=== PATIENT | male | born 1975 | race Caucasian/White ===

== ENCOUNTER 2021-10-15 15:26 | Inpatient (IN) | payer OTHER ==
[~2021-10-15] VITALS: Ht 170.2 cm; Wt 109.1 kg
[2021-10-15] MEDS ORDERED: ACETAMINOPHEN 325 MG TABLET PO PRN (17:15)
[2021-10-15 17:55] LABS: BASOPHILS % (AUTO) 0.4 % (0.0-2.0); EOSINOPHILS % (AUTO) 0.1 % (1.0-6.0); HEMATOCRIT 49.4 % (41-53); HEMOGLOBIN 16.8 g/dL (13.5-17.5); LYMPHOCYTES # (AUTO) 1.4 K/uL (1.0-4.8); LYMPHOCYTES % (AUTO) 21.5 % (22.0-44.0); MEAN CORPUSCULAR VOLUME 85 fL (80-100); MONOCYTES # (AUTO) 0.7 K/uL (0.1-1.0); MONOCYTES % (AUTO) 9.9 % (2.0-9.0); NEUTROPHILS # (AUTO) 4.5 K/uL (1.8-7.7); NEUTROPHILS % (AUTO) 68.1 % (40.0-70.0); PLATELET COUNT (AUTO) 259 K/uL (150-450); RED CELL DISTRIBUTION WIDTH 14.6 % (11.5-14.5)
[2021-10-15 17:59] LABS: ANION GAP 9 mmol/L (8-16); CALCIUM, TOTAL 9.4 mg/dL (8.8-10.5); CARBON DIOXIDE 27 mmol/L (22-29); CHLORIDE 100 mmol/L (98-107); CREATININE 1.13 mg/dL (0.60-1.30); GLOMERULAR FILTR. RATE CALC > 60 mL/min (>60); GLUCOSE,RANDOM 110 mg/dL (70-110); POTASSIUM 3.9 mmol/L (3.5-5.1); SODIUM SERUM 136 mmol/L (136-145); UREA NITROGEN, BLOOD 16 mg/dL (7-18)
[2021-10-15 18:10] LABS: LACTIC ACID 1.6 mmol/L (0.4-2.0)
[2021-10-15 18:12] LABS: D-DIMER 0.42 mg/L FEU (0.00-0.50); PROTHROMBIN TIME 10.9 SEC (9.4-11.6)
[2021-10-15 18:20] LABS: B-TYPE NATRIURETIC PEPTIDE < 5 pg/mL (0-100)
[2021-10-15 18:22] LABS: ALANINE AMINOTRANSFERASE 82 U/L (12-78); ALBUMIN 3.7 g/dL (3.4-5.0); ALKALINE PHOSPHATASE 89 U/L (46-116); ASPARTATE AMINOTRANSFERASE 49 U/L (15-37); BILIRUBIN,TOTAL 0.6 mg/dL (0.1-1.0); FERRITIN 174 ng/mL (26-388); LACTATE DEHYDROGENASE 188 U/L (85-227); LIPASE 229 U/L (73-393); TOTAL PROTEIN, SERUM 8.1 g/dL (6.4-8.2)
[2021-10-15] MEDS ORDERED: ESCI10 PO (21:29)
[2021-10-15] MEDS ORDERED: GABA-529 PO (21:29)
[2021-10-15] MEDS ORDERED: ACYC-138 PO (21:29)
[2021-10-15] MEDS ORDERED: TERB250T90 PO (21:29)
[2021-10-15] MEDS ORDERED: ONDANSETRON HCL 4 MG/2 ML VIAL IVP PRN (22:45)
[2021-10-15 22:58] LABS: COVID AG,FIA SOURCE NASOPHARYNGEAL
[2021-10-15] MEDS ORDERED: LEVOFLOXACIN 500 MG TABLET PO SCH (23:30)
[2021-10-16] MEDS ORDERED: ONDANSETRON HCL 4 MG TABLET PO ONE (01:00)
[2021-10-16 08:54] VITALS: BP 119/71
[2021-10-16] MEDS: HEPARIN SODIUM,PORCINE 5,000 UNITS/ML VIAL SQ SCH ×4 (09:50→23:44)
[2021-10-16] MEDS: MULTIVITAMINS WITH MINERALS, THERAPEUTIC TABLET PO SCH (09:50)
[2021-10-16] MEDS: BENZONATATE 100 MG CAPSULE PO PRN ×3 (10:05→23:45)
[2021-10-16 10:44] LABS: APPEARANCE,URINE CLEAR (CLEAR); BACTERIA,URINE None Seen /HPF (None Seen); BILIRUBIN,URINE NEGATIVE (NEGATIVE); GLUCOSE, URINE (UA) NEGATIVE (NEGATIVE); KETONES,URINE NEGATIVE (NEGATIVE); LEUKOCYTE ESTERASE ,URINE NEGATIVE (NEGATIVE); NITRATE,URINE NEGATIVE (NEGATIVE); OCCULT BLOOD,URINE NEGATIVE (NEGATIVE); PH,URINE 6.5 (5.0-8.0); PROTEIN,URINE NEGATIVE (NEGATIVE); RBC,URINE None Seen /HPF (0-2); UROBILINOGEN,URINE 0.2 mg/dL (<=1.0); WBC,URINE None Seen /HPF (0-5)
[2021-10-16] MEDS: ACETAMINOPHEN 325 MG TABLET PO PRN ×2 (15:02→21:11)
[2021-10-16 15:15] VITALS: BP 117/83
[2021-10-16] MEDS ORDERED: INFLUENZA VIRUS VACCINE QVS 2021-22 (6MO+)/PF 60 MCG/0.5 ML SYRINGE IM. ONE (18:15)
[2021-10-16 20:40] VITALS: BP 123/65
[2021-10-16 23:22] VITALS: BP 116/70
[2021-10-17] MEDS: ACETAMINOPHEN 325 MG TABLET PO PRN ×4 (03:35→21:15)
[2021-10-17 05:50] VITALS: BP 123/93
[2021-10-17 07:34] VITALS: BP 120/82
[2021-10-17] MEDS: HEPARIN SODIUM,PORCINE 5,000 UNITS/ML VIAL SQ SCH ×2 (08:02→16:01)
[2021-10-17] MEDS: MULTIVITAMINS WITH MINERALS, THERAPEUTIC TABLET PO SCH (08:02)
[2021-10-17] MEDS: BENZONATATE 100 MG CAPSULE PO PRN ×2 (08:10→16:10)
[2021-10-17 15:31] VITALS: BP 122/87
[2021-10-17 19:25] VITALS: BP 120/62
[2021-10-17] MEDS: PROMETH/PHENYLEPHRINE/CODEINE 5 ML ORAL.SYG PO PRN (20:25)
[2021-10-17] MEDS: MELATONIN 3 MG TABLET PO PRN (21:12)
[2021-10-18] MEDS: HEPARIN SODIUM,PORCINE 5,000 UNITS/ML VIAL SQ SCH ×4 (00:10→23:36)
[2021-10-18] MEDS: ACETAMINOPHEN 325 MG TABLET PO PRN ×5 (01:31→21:24)
[2021-10-18] MEDS: PROMETH/PHENYLEPHRINE/CODEINE 5 ML ORAL.SYG PO PRN ×4 (05:15→23:36)
[2021-10-18] MEDS: PANTOPRAZOLE SODIUM 40 MG DR TABLET PO SCH (08:18)
[2021-10-18] MEDS: BENZONATATE 100 MG CAPSULE PO PRN ×3 (08:18→21:24)
[2021-10-18] MEDS: MULTIVITAMINS WITH MINERALS, THERAPEUTIC TABLET PO SCH (08:18)
[2021-10-18 08:41] VITALS: BP 111/75
[2021-10-18 16:33] VITALS: BP 102/54
[2021-10-18 17:06] LABS: S PNEUMO SOURCE Urine; STREP PNEUMONIAE AG URINE Negative (Negative)
[2021-10-18 20:07] VITALS: BP 110/74
[2021-10-18] MEDS: MELATONIN 3 MG TABLET PO PRN (21:26)
[2021-10-19] MEDS: BENZONATATE 100 MG CAPSULE PO PRN ×3 (03:59→23:20)
[2021-10-19] MEDS: ACETAMINOPHEN 325 MG TABLET PO PRN ×5 (04:06→20:24)
[2021-10-19 04:23] VITALS: BP 106/67
[2021-10-19 06:59] LABS: BASOPHILS % (AUTO) 0.8 % (0.0-2.0); EOSINOPHILS % (AUTO) 0.8 % (1.0-6.0); HEMATOCRIT 45.4 % (41-53); HEMOGLOBIN 15.4 g/dL (13.5-17.5); LYMPHOCYTES # (AUTO) 1.6 K/uL (1.0-4.8); LYMPHOCYTES % (AUTO) 29.9 % (22.0-44.0); MEAN CORPUSCULAR VOLUME 85 fL (80-100); MONOCYTES # (AUTO) 0.5 K/uL (0.1-1.0); NEUTROPHILS # (AUTO) 3.1 K/uL (1.8-7.7); NEUTROPHILS % (AUTO) 58.5 % (40.0-70.0); PLATELET COUNT (AUTO) 298 K/uL (150-450); RED BLOOD CELL COUNT(AUTO) 5.32 MIL/uL (4.50-5.90); RED CELL DISTRIBUTION WIDTH 14.7 % (11.5-14.5)
[2021-10-19 07:22] LABS: ALANINE AMINOTRANSFERASE 67 U/L (12-78); ALBUMIN 2.8 g/dL (3.4-5.0); ALKALINE PHOSPHATASE 72 U/L (46-116); ANION GAP 2 mmol/L (8-16); ASPARTATE AMINOTRANSFERASE 50 U/L (15-37); BILIRUBIN,TOTAL 0.6 mg/dL (0.1-1.0); C-REACTIVE PROTEIN QUANT 1.81 mg/dL (0.00-0.30); CALCIUM, TOTAL 8.7 mg/dL (8.8-10.5); CARBON DIOXIDE 30 mmol/L (22-29); CHLORIDE 103 mmol/L (98-107); GLOMERULAR FILTR. RATE CALC > 60 mL/min (>60); GLUCOSE,RANDOM 95 mg/dL (70-110); POTASSIUM 4.3 mmol/L (3.5-5.1); SODIUM SERUM 135 mmol/L (136-145); UREA NITROGEN, BLOOD 10 mg/dL (7-18)
[2021-10-19] MEDS: HEPARIN SODIUM,PORCINE 5,000 UNITS/ML VIAL SQ SCH ×3 (08:07→23:20)
[2021-10-19] MEDS: MULTIVITAMINS WITH MINERALS, THERAPEUTIC TABLET PO SCH (08:07)
[2021-10-19] MEDS: PANTOPRAZOLE SODIUM 40 MG DR TABLET PO SCH (08:07)
[2021-10-19] MEDS: PROMETH/PHENYLEPHRINE/CODEINE 5 ML ORAL.SYG PO PRN ×3 (08:07→20:24)
[2021-10-19 08:17] VITALS: BP 108/74
[2021-10-19 20:11] VITALS: BP 117/76
[2021-10-19] MEDS: MELATONIN 3 MG TABLET PO PRN (20:24)
[2021-10-20 04:53] VITALS: BP 105/63
[2021-10-20] MEDS: PROMETH/PHENYLEPHRINE/CODEINE 5 ML ORAL.SYG PO PRN ×3 (06:31→21:01)
[2021-10-20] MEDS: ACETAMINOPHEN 325 MG TABLET PO PRN ×3 (06:34→21:01)
[2021-10-20 09:03] VITALS: BP 110/72
[2021-10-20] MEDS: MULTIVITAMINS WITH MINERALS, THERAPEUTIC TABLET PO SCH (09:28)
[2021-10-20] MEDS: HEPARIN SODIUM,PORCINE 5,000 UNITS/ML VIAL SQ SCH ×3 (09:28→23:11)
[2021-10-20] MEDS: PANTOPRAZOLE SODIUM 40 MG DR TABLET PO SCH (09:29)
[2021-10-20] MEDS: BENZONATATE 100 MG CAPSULE PO PRN ×2 (12:41→23:49)
[2021-10-20 15:44] VITALS: BP 106/72
[2021-10-20 20:18] VITALS: BP 122/75
[2021-10-20] MEDS: MELATONIN 3 MG TABLET PO PRN (23:49)
[2021-10-21 05:48] VITALS: BP 100/69
[2021-10-21] MEDS: ACETAMINOPHEN 325 MG TABLET PO PRN ×3 (05:59→23:52)
[2021-10-21] MEDS: BENZONATATE 100 MG CAPSULE PO PRN ×2 (05:59→23:51)
[2021-10-21] MEDS: PANTOPRAZOLE SODIUM 40 MG DR TABLET PO SCH (08:32)
[2021-10-21] MEDS: HEPARIN SODIUM,PORCINE 5,000 UNITS/ML VIAL SQ SCH ×3 (08:32→23:54)
[2021-10-21] MEDS: MULTIVITAMINS WITH MINERALS, THERAPEUTIC TABLET PO SCH (08:32)
[2021-10-21] MEDS ORDERED: DEXAMETHASONE SOD PHOS 4 MG/ML VIAL IVP ONE (10:45)
[2021-10-21] MEDS: PROMETH/PHENYLEPHRINE/CODEINE 5 ML ORAL.SYG PO PRN ×2 (11:00→19:04)
[2021-10-21] MEDS ORDERED: SODIUM CHLORIDE 0.9% 500 ML IV ONE (11:01)
[2021-10-21 12:42] LABS: BASOPHILS % (AUTO) 2.1 % (0.0-2.0); EOSINOPHILS % (AUTO) 2.2 % (1.0-6.0); HEMATOCRIT 45.8 % (41-53); HEMOGLOBIN 15.7 g/dL (13.5-17.5); LYMPHOCYTES # (AUTO) 1.7 K/uL (1.0-4.8); LYMPHOCYTES % (AUTO) 31.8 % (22.0-44.0); MEAN CORPUSCULAR HEMOGLOBIN 29.4 pg (26.0-34.0); MEAN CORPUSCULAR HGB CONC 34.4 G/dL (31.0-37.0); MEAN CORPUSCULAR VOLUME 86 fL (80-100); MONOCYTES # (AUTO) 0.9 K/uL (0.1-1.0); MONOCYTES % (AUTO) 17.3 % (2.0-9.0); NEUTROPHILS # (AUTO) 2.5 K/uL (1.8-7.7); NEUTROPHILS % (AUTO) 46.6 % (40.0-70.0); PLATELET COUNT (AUTO) 387 K/uL (150-450); RED BLOOD CELL COUNT(AUTO) 5.36 MIL/uL (4.50-5.90); RED CELL DISTRIBUTION WIDTH 14.4 % (11.5-14.5)
[2021-10-21] MEDS ORDERED: REMDESIVIR 200 MG in SODIUM CHLORIDE 0.9% 250 ML IV ONE (13:15)
[2021-10-21 13:29] LABS: ANION GAP 3 mmol/L (8-16); CARBON DIOXIDE 29 mmol/L (22-29); CHLORIDE 102 mmol/L (98-107); CREATININE 0.93 mg/dL (0.60-1.30); GLUCOSE,RANDOM 98 mg/dL (70-110); POTASSIUM 4.3 mmol/L (3.5-5.1); SODIUM SERUM 134 mmol/L (136-145); UREA NITROGEN, BLOOD 13 mg/dL (7-18)
[2021-10-21 13:30] LABS: ALANINE AMINOTRANSFERASE 62 U/L (12-78); ALBUMIN 2.9 g/dL (3.4-5.0); ALKALINE PHOSPHATASE 80 U/L (46-116); ASPARTATE AMINOTRANSFERASE 32 U/L (15-37); BILIRUBIN,TOTAL 0.5 mg/dL (0.1-1.0); C-REACTIVE PROTEIN QUANT 2.19 mg/dL (0.00-0.30); FERRITIN 293 ng/mL (26-388); GLOMERULAR FILTR. RATE CALC > 60 mL/min (>60); LACTATE DEHYDROGENASE 227 U/L (85-227); TOTAL PROTEIN, SERUM 7.5 g/dL (6.4-8.2)
[2021-10-21 19:35] VITALS: BP 108/78
[2021-10-21] MEDS: MELATONIN 3 MG TABLET PO PRN (20:42)
[2021-10-22] MEDS: PROMETH/PHENYLEPHRINE/CODEINE 5 ML ORAL.SYG PO PRN ×3 (04:06→20:49)
[2021-10-22] MEDS: ACETAMINOPHEN 325 MG TABLET PO PRN ×2 (04:10→15:08)
[2021-10-22 04:15] VITALS: BP 116/78
[2021-10-22 06:51] LABS: BASOPHILS % (AUTO) 0.6 % (0.0-2.0); EOSINOPHILS % (AUTO) 2.6 % (1.0-6.0); HEMATOCRIT 45.5 % (41-53); HEMOGLOBIN 15.6 g/dL (13.5-17.5); LYMPHOCYTES # (AUTO) 2.1 K/uL (1.0-4.8); MEAN CORPUSCULAR HEMOGLOBIN 29.3 pg (26.0-34.0); MEAN CORPUSCULAR HGB CONC 34.3 G/dL (31.0-37.0); MEAN CORPUSCULAR VOLUME 86 fL (80-100); MONOCYTES # (AUTO) 0.9 K/uL (0.1-1.0); MONOCYTES % (AUTO) 11.4 % (2.0-9.0); NEUTROPHILS # (AUTO) 4.4 K/uL (1.8-7.7); NEUTROPHILS % (AUTO) 57.4 % (40.0-70.0); PLATELET COUNT (AUTO) 476 K/uL (150-450); RED BLOOD CELL COUNT(AUTO) 5.32 MIL/uL (4.50-5.90); RED CELL DISTRIBUTION WIDTH 14.9 % (11.5-14.5)
[2021-10-22 07:16] LABS: ALANINE AMINOTRANSFERASE 55 U/L (12-78); ALBUMIN 2.8 g/dL (3.4-5.0); ALKALINE PHOSPHATASE 75 U/L (46-116); ANION GAP 8 mmol/L (8-16); ASPARTATE AMINOTRANSFERASE 29 U/L (15-37); BILIRUBIN,TOTAL 0.4 mg/dL (0.1-1.0); C-REACTIVE PROTEIN QUANT 1.43 mg/dL (0.00-0.30); CALCIUM, TOTAL 9.1 mg/dL (8.8-10.5); CARBON DIOXIDE 29 mmol/L (22-29); CHLORIDE 100 mmol/L (98-107); CREATININE 0.96 mg/dL (0.60-1.30); FERRITIN 257 ng/mL (26-388); GLOMERULAR FILTR. RATE CALC > 60 mL/min (>60); GLUCOSE,RANDOM 84 mg/dL (70-110); POTASSIUM 4.4 mmol/L (3.5-5.1); SODIUM SERUM 137 mmol/L (136-145); TOTAL PROTEIN, SERUM 7.3 g/dL (6.4-8.2); UREA NITROGEN, BLOOD 14 mg/dL (7-18)
[2021-10-22 07:54] VITALS: BP 98/73
[2021-10-22] MEDS ORDERED: DEXAMETHASONE SOD PHOS 4 MG/ML VIAL IVP SCH (09:00)
[2021-10-22] MEDS: MULTIVITAMINS WITH MINERALS, THERAPEUTIC TABLET PO SCH (09:15)
[2021-10-22] MEDS: BENZONATATE 100 MG CAPSULE PO PRN ×2 (09:15→18:54)
[2021-10-22] MEDS: HEPARIN SODIUM,PORCINE 5,000 UNITS/ML VIAL SQ SCH ×2 (09:15→15:09)
[2021-10-22] MEDS: PANTOPRAZOLE SODIUM 40 MG DR TABLET PO SCH (09:15)
[2021-10-22] MEDS: REMDESIVIR 100 MG in SODIUM CHLORIDE 0.9% 250 ML IV SCH (13:29)
[2021-10-22 16:07] VITALS: BP 99/73
[2021-10-22] MEDS: IBUPROFEN 800 MG TABLET PO SCH ×2 (16:47→20:49)
[2021-10-22] MEDS: DEXAMETHASONE 4 MG TABLET PO SCH (18:32)
[2021-10-22] MEDS ORDERED: IOHEXOL 350 MG/ML 150 ML VIAL ONE (19:50)
[2021-10-22] MEDS ORDERED: SODIUM CHLORIDE 0.9% 0 ML ONE (19:50)
[2021-10-22 20:43] VITALS: BP 123/77
[2021-10-22] MEDS: MELATONIN 3 MG TABLET PO PRN (20:48)
[2021-10-23 00:35] VITALS: BP 106/72
[2021-10-23 04:18] VITALS: BP 123/77
[2021-10-23] MEDS: PROMETH/PHENYLEPHRINE/CODEINE 5 ML ORAL.SYG PO PRN ×3 (04:37→20:54)
[2021-10-23] MEDS: ACETAMINOPHEN 325 MG TABLET PO PRN ×3 (04:37→23:41)
[2021-10-23 06:45] LABS: BASOPHILS % (AUTO) 0.2 % (0.0-2.0); EOSINOPHILS % (AUTO) 0 % (1.0-6.0); HEMATOCRIT 43.9 % (41-53); HEMOGLOBIN 15.2 g/dL (13.5-17.5); LYMPHOCYTES # (AUTO) 1.1 K/uL (1.0-4.8); LYMPHOCYTES % (AUTO) 11.7 % (22.0-44.0); MEAN CORPUSCULAR HEMOGLOBIN 29.3 pg (26.0-34.0); MEAN CORPUSCULAR HGB CONC 34.6 G/dL (31.0-37.0); MEAN CORPUSCULAR VOLUME 85 fL (80-100); MONOCYTES # (AUTO) 0.2 K/uL (0.1-1.0); MONOCYTES % (AUTO) 2.3 % (2.0-9.0); NEUTROPHILS # (AUTO) 8.3 K/uL (1.8-7.7); PLATELET COUNT (AUTO) 528 K/uL (150-450); RED BLOOD CELL COUNT(AUTO) 5.18 MIL/uL (4.50-5.90); RED CELL DISTRIBUTION WIDTH 14.5 % (11.5-14.5)
[2021-10-23 06:57] LABS: NEUTROPHILS % (AUTO) 85.8 % (40.0-70.0)
[2021-10-23 07:34] LABS: ALANINE AMINOTRANSFERASE 47 U/L (12-78); ALBUMIN 2.8 g/dL (3.4-5.0); ALKALINE PHOSPHATASE 75 U/L (46-116); ANION GAP 9 mmol/L (8-16); ASPARTATE AMINOTRANSFERASE 22 U/L (15-37); BILIRUBIN,TOTAL 0.5 mg/dL (0.1-1.0); C-REACTIVE PROTEIN QUANT 5.05 mg/dL (0.00-0.30); CALCIUM, TOTAL 8.9 mg/dL (8.8-10.5); CARBON DIOXIDE 25 mmol/L (22-29); CHLORIDE 100 mmol/L (98-107); CREATININE 1.01 mg/dL (0.60-1.30); FERRITIN 250 ng/mL (26-388); GLOMERULAR FILTR. RATE CALC > 60 mL/min (>60); GLUCOSE,RANDOM 216 mg/dL (70-110); POTASSIUM 4.1 mmol/L (3.5-5.1); SODIUM SERUM 134 mmol/L (136-145); TOTAL PROTEIN, SERUM 7.5 g/dL (6.4-8.2); UREA NITROGEN, BLOOD 15 mg/dL (7-18)
[2021-10-23 07:56] VITALS: BP 109/68
[2021-10-23] MEDS: HEPARIN SODIUM,PORCINE 5,000 UNITS/ML VIAL SQ SCH ×4 (08:14→23:40)
[2021-10-23] MEDS: DEXAMETHASONE 4 MG TABLET PO SCH (08:14)
[2021-10-23] MEDS: IBUPROFEN 800 MG TABLET PO SCH ×3 (08:14→20:54)
[2021-10-23] MEDS: MULTIVITAMINS WITH MINERALS, THERAPEUTIC TABLET PO SCH (08:14)
[2021-10-23] MEDS: BENZONATATE 100 MG CAPSULE PO PRN ×3 (08:14→23:41)
[2021-10-23] MEDS: PANTOPRAZOLE SODIUM 40 MG DR TABLET PO SCH (08:14)
[2021-10-23] MEDS: REMDESIVIR 100 MG in SODIUM CHLORIDE 0.9% 250 ML IV SCH (12:16)
[2021-10-23 17:28] VITALS: BP 113/75
[2021-10-23 20:05] VITALS: BP 119/76
[2021-10-23] MEDS: MELATONIN 3 MG TABLET PO PRN (20:54)
[2021-10-23] MEDS: MAG HYDROX/AL HYDROX/SIMETH 30 ML SUSP UDCUP PO PRN (23:41)
[2021-10-24 04:10] VITALS: BP 97/63
[2021-10-24 06:14] LABS: BASOPHILS % (AUTO) 0.1 % (0.0-2.0); EOSINOPHILS % (AUTO) 0 % (1.0-6.0); HEMATOCRIT 39.2 % (41-53); HEMOGLOBIN 13.7 g/dL (13.5-17.5); LYMPHOCYTES # (AUTO) 1.9 K/uL (1.0-4.8); LYMPHOCYTES % (AUTO) 12.5 % (22.0-44.0); MEAN CORPUSCULAR HEMOGLOBIN 29.5 pg (26.0-34.0); MEAN CORPUSCULAR VOLUME 85 fL (80-100); MONOCYTES # (AUTO) 1.3 K/uL (0.1-1.0); MONOCYTES % (AUTO) 8.7 % (2.0-9.0); NEUTROPHILS # (AUTO) 11.9 K/uL (1.8-7.7); NEUTROPHILS % (AUTO) 78.7 % (40.0-70.0); PLATELET COUNT (AUTO) 638 K/uL (150-450); RED BLOOD CELL COUNT(AUTO) 4.64 MIL/uL (4.50-5.90); RED CELL DISTRIBUTION WIDTH 14.8 % (11.5-14.5)
[2021-10-24 06:47] LABS: ALANINE AMINOTRANSFERASE 38 U/L (12-78); ALBUMIN 2.7 g/dL (3.4-5.0); ALKALINE PHOSPHATASE 72 U/L (46-116); ANION GAP 6 mmol/L (8-16); ASPARTATE AMINOTRANSFERASE 19 U/L (15-37); BILIRUBIN,TOTAL 0.3 mg/dL (0.1-1.0); C-REACTIVE PROTEIN QUANT 2.92 mg/dL (0.00-0.30); CARBON DIOXIDE 28 mmol/L (22-29); CHLORIDE 103 mmol/L (98-107); CREATININE 1.03 mg/dL (0.60-1.30); FERRITIN 225 ng/mL (26-388); GLOMERULAR FILTR. RATE CALC > 60 mL/min (>60); GLUCOSE,RANDOM 118 mg/dL (70-110); POTASSIUM 4.4 mmol/L (3.5-5.1); SODIUM SERUM 137 mmol/L (136-145); TOTAL PROTEIN, SERUM 6.9 g/dL (6.4-8.2); UREA NITROGEN, BLOOD 20 mg/dL (7-18)
[2021-10-24 07:41] VITALS: BP 99/65
[2021-10-24] MEDS: DEXAMETHASONE 4 MG TABLET PO SCH (09:10)
[2021-10-24] MEDS: PANTOPRAZOLE SODIUM 40 MG DR TABLET PO SCH (09:10)
[2021-10-24] MEDS: IBUPROFEN 800 MG TABLET PO SCH ×3 (09:11→19:46)
[2021-10-24] MEDS: MULTIVITAMINS WITH MINERALS, THERAPEUTIC TABLET PO SCH (09:11)
[2021-10-24] MEDS: HEPARIN SODIUM,PORCINE 5,000 UNITS/ML VIAL SQ SCH ×3 (09:11→23:15)
[2021-10-24] MEDS: ESCITALOPRAM OXALATE 10 MG TABLET PO SCH (12:45)
[2021-10-24] MEDS: BENZONATATE 100 MG CAPSULE PO PRN ×2 (12:45→19:46)
[2021-10-24] MEDS: ALLOPURINOL 100 MG TABLET PO SCH (12:45)
[2021-10-24] MEDS: REMDESIVIR 100 MG in SODIUM CHLORIDE 0.9% 250 ML IV SCH (12:47)
[2021-10-24 15:42] VITALS: BP 103/70
[2021-10-24] MEDS: GABAPENTIN 100 MG CAPSULE PO SCH ×2 (15:55→19:46)
[2021-10-24] MEDS: PROMETH/PHENYLEPHRINE/CODEINE 5 ML ORAL.SYG PO PRN ×2 (16:02→23:15)
[2021-10-24 19:30] VITALS: BP 107/73
[2021-10-24] MEDS: ACYCLOVIR 800 MG TABLET PO SCH (19:46)
[2021-10-24] MEDS: MELATONIN 3 MG TABLET PO PRN (21:42)
[2021-10-25 00:50] VITALS: BP 106/66
[2021-10-25 05:03] VITALS: BP 108/60
[2021-10-25 06:53] LABS: BASOPHILS % (AUTO) 0.2 % (0.0-2.0); EOSINOPHILS % (AUTO) 0 % (1.0-6.0); HEMATOCRIT 41.1 % (41-53); LYMPHOCYTES # (AUTO) 1.8 K/uL (1.0-4.8); LYMPHOCYTES % (AUTO) 15.1 % (22.0-44.0); MEAN CORPUSCULAR HEMOGLOBIN 28.9 pg (26.0-34.0); MEAN CORPUSCULAR HGB CONC 34.1 G/dL (31.0-37.0); MEAN CORPUSCULAR VOLUME 85 fL (80-100); MONOCYTES # (AUTO) 0.9 K/uL (0.1-1.0); MONOCYTES % (AUTO) 8.1 % (2.0-9.0); NEUTROPHILS # (AUTO) 8.9 K/uL (1.8-7.7); NEUTROPHILS % (AUTO) 76.6 % (40.0-70.0); PLATELET COUNT (AUTO) 727 K/uL (150-450); RED BLOOD CELL COUNT(AUTO) 4.85 MIL/uL (4.50-5.90); RED CELL DISTRIBUTION WIDTH 15.1 % (11.5-14.5)
[2021-10-25 07:14] LABS: ALANINE AMINOTRANSFERASE 44 U/L (12-78); ALBUMIN 2.6 g/dL (3.4-5.0); ALKALINE PHOSPHATASE 63 U/L (46-116); ANION GAP 4 mmol/L (8-16); ASPARTATE AMINOTRANSFERASE 22 U/L (15-37); BILIRUBIN,TOTAL 0.3 mg/dL (0.1-1.0); C-REACTIVE PROTEIN QUANT 1.18 mg/dL (0.00-0.30); CALCIUM, TOTAL 8.8 mg/dL (8.8-10.5); CARBON DIOXIDE 27 mmol/L (22-29); CHLORIDE 106 mmol/L (98-107); CREATININE 0.96 mg/dL (0.60-1.30); FERRITIN 193 ng/mL (26-388); GLOMERULAR FILTR. RATE CALC > 60 mL/min (>60); GLUCOSE,RANDOM 103 mg/dL (70-110); POTASSIUM 4.9 mmol/L (3.5-5.1); SODIUM SERUM 137 mmol/L (136-145); TOTAL PROTEIN, SERUM 6.8 g/dL (6.4-8.2); UREA NITROGEN, BLOOD 19 mg/dL (7-18)
[2021-10-25 08:22] VITALS: BP 113/84
[2021-10-25] MEDS: GABAPENTIN 100 MG CAPSULE PO SCH ×3 (08:48→20:13)
[2021-10-25] MEDS: ACETAMINOPHEN 325 MG TABLET PO PRN ×3 (08:48→23:52)
[2021-10-25] MEDS: ALLOPURINOL 100 MG TABLET PO SCH (08:48)
[2021-10-25] MEDS: MULTIVITAMINS WITH MINERALS, THERAPEUTIC TABLET PO SCH (08:49)
[2021-10-25] MEDS: HEPARIN SODIUM,PORCINE 5,000 UNITS/ML VIAL SQ SCH ×2 (08:49→15:43)
[2021-10-25] MEDS: ESCITALOPRAM OXALATE 10 MG TABLET PO SCH (08:49)
[2021-10-25] MEDS: BENZONATATE 100 MG CAPSULE PO PRN ×3 (08:49→23:52)
[2021-10-25] MEDS: IBUPROFEN 800 MG TABLET PO SCH ×3 (08:49→20:13)
[2021-10-25] MEDS: PANTOPRAZOLE SODIUM 40 MG DR TABLET PO SCH (08:49)
[2021-10-25] MEDS: DEXAMETHASONE 4 MG TABLET PO SCH (08:50)
[2021-10-25] MEDS: REMDESIVIR 100 MG in SODIUM CHLORIDE 0.9% 250 ML IV SCH (13:28)
[2021-10-25] MEDS: MAG HYDROX/AL HYDROX/SIMETH 30 ML SUSP UDCUP PO PRN (13:34)
[2021-10-25] MEDS: PROMETH/PHENYLEPHRINE/CODEINE 5 ML ORAL.SYG PO PRN ×2 (13:35→20:13)
[2021-10-25 16:08] VITALS: BP 100/67
[2021-10-25 19:20] VITALS: BP 106/68
[2021-10-25] MEDS: MELATONIN 3 MG TABLET PO PRN (20:13)
[2021-10-25] MEDS: ACYCLOVIR 800 MG TABLET PO SCH (20:13)
[2021-10-26] MEDS: HEPARIN SODIUM,PORCINE 5,000 UNITS/ML VIAL SQ SCH ×4 (01:08→23:53)
[2021-10-26 04:20] VITALS: BP 114/75
[2021-10-26] MEDS: ACETAMINOPHEN 325 MG TABLET PO PRN ×2 (06:07→23:54)
[2021-10-26] MEDS: PROMETH/PHENYLEPHRINE/CODEINE 5 ML ORAL.SYG PO PRN ×3 (06:07→23:53)
[2021-10-26 08:28] VITALS: BP 105/71
[2021-10-26] MEDS: GABAPENTIN 100 MG CAPSULE PO SCH ×3 (08:49→20:36)
[2021-10-26] MEDS: MULTIVITAMINS WITH MINERALS, THERAPEUTIC TABLET PO SCH (08:49)
[2021-10-26] MEDS: PANTOPRAZOLE SODIUM 40 MG DR TABLET PO SCH (08:50)
[2021-10-26] MEDS: ALLOPURINOL 100 MG TABLET PO SCH (08:50)
[2021-10-26] MEDS: DEXAMETHASONE 4 MG TABLET PO SCH (08:50)
[2021-10-26] MEDS: BENZONATATE 100 MG CAPSULE PO PRN ×2 (08:50→16:25)
[2021-10-26] MEDS: ESCITALOPRAM OXALATE 10 MG TABLET PO SCH (08:50)
[2021-10-26] MEDS: IBUPROFEN 800 MG TABLET PO SCH ×3 (08:50→20:36)
[2021-10-26 16:07] VITALS: BP 113/71
[2021-10-26] MEDS: ACYCLOVIR 800 MG TABLET PO SCH (20:36)
[2021-10-26] MEDS: MELATONIN 3 MG TABLET PO PRN (20:36)
[2021-10-26 20:56] VITALS: BP 124/73
[2021-10-27] MEDS: BENZONATATE 100 MG CAPSULE PO PRN ×2 (01:54→08:54)
[2021-10-27] MEDS: PROMETH/PHENYLEPHRINE/CODEINE 5 ML ORAL.SYG PO PRN (06:21)
[2021-10-27 08:15] VITALS: BP 108/65
[2021-10-27] MEDS: GABAPENTIN 100 MG CAPSULE PO SCH (08:52)
[2021-10-27] MEDS: ACETAMINOPHEN 325 MG TABLET PO PRN (08:53)
[2021-10-27] MEDS: ALLOPURINOL 100 MG TABLET PO SCH (08:53)
[2021-10-27] MEDS: IBUPROFEN 800 MG TABLET PO SCH (08:53)
[2021-10-27] MEDS: DEXAMETHASONE 4 MG TABLET PO SCH (08:53)
[2021-10-27] MEDS: PANTOPRAZOLE SODIUM 40 MG DR TABLET PO SCH (08:53)
[2021-10-27] MEDS: ESCITALOPRAM OXALATE 10 MG TABLET PO SCH (08:53)
[2021-10-27] MEDS: HEPARIN SODIUM,PORCINE 5,000 UNITS/ML VIAL SQ SCH (08:54)
[2021-10-27] MEDS: MULTIVITAMINS WITH MINERALS, THERAPEUTIC TABLET PO SCH (08:54)
[2021-10-27 16:49] VITALS: BP 105/62
== END 2021-10-27 16:40 | DRG 177 ==
LOC: EMS 15:31 → 6S 10-16 04:07
PROVIDERS: ADMIT Internal Medicine; ATTEND Internal Medicine
PROC: XW033E5 Introduction of Remdesivir Anti-infective into Peripheral Vein, Percutaneous Approach, New Technology Group 5 (ICD-10-PCS; principal; 2021-10-21)
DX: U07.1 COVID-19 (principal); J12.82 Pneumonia due to coronavirus disease 2019; F32.9 Major depressive disorder, single episode, unspecified; R74.8 Abnormal levels of other serum enzymes; G89.29 Other chronic pain; Z88.8 Allergy status to other drugs, medicaments and biological substances; Z90.49 Acquired absence of other specified parts of digestive tract
CPT/HCPCS: 71045; 73700; 73718; 80053; 81001; 82728; 83605; 83615; 83690; 83880; 84145; 84484; 84550; 85025; 85379; 85610; 85730; 86140; 87040; 87449; 87899; 93005; 97162; 99285; J1100; J1644; J2370; J7040; J7050; J8540; Q0162; Q9967; 36415-L1; 36415-TC; U0003

== ENCOUNTER 2023-02-07 10:54 | Inpatient (IN) | payer OTHER ==
[~2023-02-07] VITALS: Ht 185.4 cm; Wt 131.8 kg
[~2023-02-07 10:54] MED LIST: ACYC-138 PO; ESCI10 PO; GABA-529 PO; TERB250T90 PO
[2023-02-07 13:48] LABS: BASOPHILS % (AUTO) 0.5 % (0.0-2.0); EOSINOPHILS % (AUTO) 0.2 % (1.0-6.0); HEMATOCRIT 35.2 % (41-53); HEMOGLOBIN 11.7 g/dL (13.5-17.5); LYMPHOCYTES # (AUTO) 1.3 K/uL (1.0-4.8); LYMPHOCYTES % (AUTO) 14.9 % (22.0-44.0); MEAN CORPUSCULAR HEMOGLOBIN 31.5 pg (26.0-34.0); MEAN CORPUSCULAR HGB CONC 33.1 G/dL (31.0-37.0); MEAN CORPUSCULAR VOLUME 95 fL (80-100); MONOCYTES # (AUTO) 0.6 K/uL (0.1-1.0); MONOCYTES % (AUTO) 6.6 % (2.0-9.0); NEUTROPHILS % (AUTO) 77.8 % (40.0-70.0); PLATELET COUNT (AUTO) 635 K/uL (150-450)
[2023-02-07 13:59] LABS: ANION GAP 8 mmol/L (8-16); CALCIUM, TOTAL 8.9 mg/dL (8.8-10.5); CARBON DIOXIDE 26 mmol/L (22-29); CHLORIDE 104 mmol/L (98-107); CREATININE 1.18 mg/dL (0.60-1.30); GLOMERULAR FILTR. RATE CALC > 60 mL/min (>60); GLUCOSE,RANDOM 101 mg/dL (70-110); POTASSIUM 4.3 mmol/L (3.5-5.1); SODIUM SERUM 138 mmol/L (136-145)
[2023-02-07 14:03] LABS: PROTHROMBIN TIME 10.3 SEC (9.4-11.6)
[2023-02-07 14:05] LABS: ALANINE AMINOTRANSFERASE 41 U/L (12-78); ALBUMIN 3.2 g/dL (3.4-5.0); ALKALINE PHOSPHATASE 65 U/L (46-116); ASPARTATE AMINOTRANSFERASE 27 U/L (15-37); BILIRUBIN,TOTAL 0.8 mg/dL (0.1-1.0); PHOSPHORUS 2.9 mg/dL (2.5-4.9); TOTAL PROTEIN, SERUM 6.7 g/dL (6.4-8.2)
[2023-02-07] MEDS ORDERED: SODIUM CHLORIDE 0.9% 100 ML ONE (14:15)
[2023-02-07] MEDS ORDERED: IOHEXOL 350 MG/ML 100 ML VIAL ONE ×2 (14:15)
[2023-02-07 14:17] LABS: LACTIC ACID 2.7 mmol/L (0.4-2.0)
[2023-02-07 14:24] LABS: B-TYPE NATRIURETIC PEPTIDE 20 pg/mL (0-100)
[2023-02-07] MEDS ORDERED: SODIUM CHLORIDE 0.9% 500 ML IV ONE (14:30)
[2023-02-07] MEDS ORDERED: LIDOCAINE 5% TRANSDERMAL PATCH TD ONE (14:45)
[2023-02-07] MEDS ORDERED: ACETAMINOPHEN 500 MG TABLET PO ONE (14:45)
[2023-02-07] MEDS ORDERED: ONDANSETRON HCL 4 MG/2 ML VIAL IVP PRN (18:00)
[2023-02-07] MEDS ORDERED: MORPHINE SULFATE 2 MG/ML SYRINGE IVP PRN (18:00)
[2023-02-07] MEDS ORDERED: BISACODYL 10 MG RECTAL RECTAL SUPPOSITORY PR PRN (18:00)
[2023-02-07] MEDS ORDERED: MAGNESIUM HYDROXIDE SUSPENSION 30 ML UDCUP PO PRN (18:00)
[2023-02-07] MEDS: GABAPENTIN 100 MG CAPSULE PO SCH (20:31)
[2023-02-07] MEDS: ACYCLOVIR 800 MG TABLET PO SCH (20:31)
[2023-02-07] MEDS: HYDROCODONE/ACETAMINOPHEN 5-325 MG TABLET PO PRN (20:34)
[2023-02-07] MEDS ORDERED: ASPI81TA39 PO (21:19)
[2023-02-07] MEDS ORDERED: BUSP10TA23 PO (21:19)
[2023-02-07] MEDS ORDERED: METH-812 PO (21:19)
[2023-02-07] MEDS ORDERED: ALBU18HF12 IH (21:19)
[2023-02-07] MEDS ORDERED: MONT-35 PO (21:19)
[2023-02-07] MEDS ORDERED: HYDR25TA2 PO (21:19)
[2023-02-07] MEDS ORDERED: AZEL137S8 NASAL (21:19)
[2023-02-07] MEDS ORDERED: DULO-113 PO (21:19)
[2023-02-07] MEDS ORDERED: FLUT1AER5 IH (21:19)
[2023-02-07] MEDS ORDERED: ALLO-97 PO (21:19)
[2023-02-07] MEDS ORDERED: BENZ-227 PO (21:19)
[2023-02-08] MEDS: HEPARIN SODIUM,PORCINE 5,000 UNITS/ML VIAL SQ SCH ×4 (00:22→23:28)
[2023-02-08] MEDS: ZOLPIDEM TARTRATE 5 MG TABLET PO PRN ×2 (00:25→21:36)
[2023-02-08 06:59] LABS: BASOPHILS % (AUTO) 0.7 % (0.0-2.0); EOSINOPHILS % (AUTO) 1.5 % (1.0-6.0); HEMATOCRIT 32.7 % (41-53); LYMPHOCYTES # (AUTO) 2.8 K/uL (1.0-4.8); LYMPHOCYTES % (AUTO) 23.6 % (22.0-44.0); MEAN CORPUSCULAR HGB CONC 33.7 G/dL (31.0-37.0); MEAN CORPUSCULAR VOLUME 95 fL (80-100); MONOCYTES # (AUTO) 1.1 K/uL (0.1-1.0); MONOCYTES % (AUTO) 9.3 % (2.0-9.0); NEUTROPHILS # (AUTO) 7.7 K/uL (1.8-7.7); NEUTROPHILS % (AUTO) 64.9 % (40.0-70.0); PLATELET COUNT (AUTO) 547 K/uL (150-450); RED BLOOD CELL COUNT(AUTO) 3.45 MIL/uL (4.50-5.90); RED CELL DISTRIBUTION WIDTH 15.4 % (11.5-14.5)
[2023-02-08 07:14] LABS: ANION GAP 8 mmol/L (8-16); CALCIUM, TOTAL 8.8 mg/dL (8.8-10.5); CARBON DIOXIDE 26 mmol/L (22-29); CHLORIDE 102 mmol/L (98-107); GLOMERULAR FILTR. RATE CALC > 60 mL/min (>60); GLUCOSE,RANDOM 86 mg/dL (70-110); POTASSIUM 3.9 mmol/L (3.5-5.1); SODIUM SERUM 136 mmol/L (136-145)
[2023-02-08 08:51] VITALS: BP 112/80
[2023-02-08] MEDS: ESCITALOPRAM OXALATE 10 MG TABLET PO SCH (12:04)
[2023-02-08] MEDS: GABAPENTIN 100 MG CAPSULE PO SCH ×3 (12:04→21:34)
[2023-02-08] MEDS: TERBINAFINE HCL 250 MG TABLET PO SCH (12:04)
[2023-02-08] MEDS: PANTOPRAZOLE SODIUM 40 MG DR TABLET PO SCH (12:04)
[2023-02-08] MEDS: HYDROCODONE/ACETAMINOPHEN 5-325 MG TABLET PO PRN ×2 (12:09→21:37)
[2023-02-08 16:51] VITALS: BP 133/58
[2023-02-08 21:10] VITALS: BP 109/72
[2023-02-08] MEDS: ACYCLOVIR 800 MG TABLET PO SCH (23:27)
[2023-02-08] MEDS: ACETAMINOPHEN 325 MG TABLET PO PRN (23:27)
[2023-02-08 23:48] VITALS: BP 103/62
[2023-02-09 02:06] LABS: APPEARANCE,URINE CLEAR (CLEAR); BILIRUBIN,URINE NEGATIVE (NEGATIVE); GLUCOSE, URINE (UA) NEGATIVE (NEGATIVE); KETONES,URINE NEGATIVE (NEGATIVE); LEUKOCYTE ESTERASE ,URINE NEGATIVE (NEGATIVE); NITRATE,URINE NEGATIVE (NEGATIVE); OCCULT BLOOD,URINE NEGATIVE (NEGATIVE); PH,URINE 6.5 (5.0-8.0); PROTEIN,URINE NEGATIVE (NEGATIVE); SPECIFIC GRAVITIY, URINE 1.014 (1.003-1.030); UROBILINOGEN,URINE <=1.0 mg/dL (<=1.0)
[2023-02-09 04:50] VITALS: BP 93/67
[2023-02-09 05:17] VITALS: BP 99/79
[2023-02-09 07:43] LABS: BASOPHILS % (AUTO) 0.7 % (0.0-2.0); EOSINOPHILS % (AUTO) 1.5 % (1.0-6.0); HEMATOCRIT 36.6 % (41-53); HEMOGLOBIN 12.4 g/dL (13.5-17.5); LYMPHOCYTES % (AUTO) 16.6 % (22.0-44.0); MEAN CORPUSCULAR HEMOGLOBIN 31.8 pg (26.0-34.0); MEAN CORPUSCULAR HGB CONC 33.8 G/dL (31.0-37.0); MEAN CORPUSCULAR VOLUME 94 fL (80-100); MONOCYTES # (AUTO) 1.1 K/uL (0.1-1.0); MONOCYTES % (AUTO) 9.2 % (2.0-9.0); NEUTROPHILS # (AUTO) 8.9 K/uL (1.8-7.7); PLATELET COUNT (AUTO) 599 K/uL (150-450); RED BLOOD CELL COUNT(AUTO) 3.89 MIL/uL (4.50-5.90); RED CELL DISTRIBUTION WIDTH 15.1 % (11.5-14.5)
[2023-02-09] MEDS: HEPARIN SODIUM,PORCINE 5,000 UNITS/ML VIAL SQ SCH (08:00)
[2023-02-09] MEDS: PANTOPRAZOLE SODIUM 40 MG DR TABLET PO SCH (08:06)
[2023-02-09] MEDS: ESCITALOPRAM OXALATE 10 MG TABLET PO SCH (08:06)
[2023-02-09] MEDS: TERBINAFINE HCL 250 MG TABLET PO SCH (08:07)
[2023-02-09 08:16] VITALS: BP 119/72
[2023-02-09] MEDS: GABAPENTIN 100 MG CAPSULE PO SCH ×3 (08:19→20:56)
[2023-02-09] MEDS ORDERED: PredniSONE 20 MG TABLET PO SCH (10:15)
[2023-02-09] MEDS: HYDROCODONE/ACETAMINOPHEN 5-325 MG TABLET PO PRN ×2 (14:12→21:57)
[2023-02-09 15:33] VITALS: BP 135/82
[2023-02-09] MEDS: METHOCARBAMOL 750 MG TABLET PO SCH ×2 (15:50→20:56)
[2023-02-09] MEDS: PredniSONE 20 MG TABLET PO SCH (20:57)
[2023-02-09] MEDS: ACYCLOVIR 800 MG TABLET PO SCH (20:57)
[2023-02-09] MEDS: ACETAMINOPHEN 325 MG TABLET PO PRN (20:57)
[2023-02-09 21:02] VITALS: BP 128/86
[2023-02-09] MEDS: ZOLPIDEM TARTRATE 5 MG TABLET PO PRN (21:57)
[2023-02-10 05:29] VITALS: BP 125/82
[2023-02-10 08:08] VITALS: BP 97/67
[2023-02-10] MEDS: PANTOPRAZOLE SODIUM 40 MG DR TABLET PO SCH (08:32)
[2023-02-10] MEDS: ESCITALOPRAM OXALATE 10 MG TABLET PO SCH (08:33)
[2023-02-10] MEDS: GABAPENTIN 100 MG CAPSULE PO SCH ×3 (08:33→20:45)
[2023-02-10] MEDS: PredniSONE 20 MG TABLET PO SCH ×2 (08:33→20:46)
[2023-02-10] MEDS: TERBINAFINE HCL 250 MG TABLET PO SCH (08:33)
[2023-02-10] MEDS: METHOCARBAMOL 750 MG TABLET PO SCH ×3 (08:33→20:46)
[2023-02-10] MEDS: MONTELUKAST SODIUM 10 MG TABLET PO SCH (08:33)
[2023-02-10] MEDS: ALLOPURINOL 100 MG TABLET PO SCH (08:34)
[2023-02-10 10:27] LABS: BASOPHILS % (AUTO) 0.4 % (0.0-2.0); EOSINOPHILS % (AUTO) 0 % (1.0-6.0); HEMATOCRIT 36.1 % (41-53); HEMOGLOBIN 12.1 g/dL (13.5-17.5); LYMPHOCYTES # (AUTO) 0.9 K/uL (1.0-4.8); LYMPHOCYTES % (AUTO) 6.3 % (22.0-44.0); MEAN CORPUSCULAR HEMOGLOBIN 31.4 pg (26.0-34.0); MEAN CORPUSCULAR HGB CONC 33.4 G/dL (31.0-37.0); MEAN CORPUSCULAR VOLUME 94 fL (80-100); MONOCYTES # (AUTO) 0.5 K/uL (0.1-1.0); MONOCYTES % (AUTO) 3.9 % (2.0-9.0); NEUTROPHILS # (AUTO) 12.2 K/uL (1.8-7.7); PLATELET COUNT (AUTO) 558 K/uL (150-450); RED BLOOD CELL COUNT(AUTO) 3.84 MIL/uL (4.50-5.90); RED CELL DISTRIBUTION WIDTH 15.1 % (11.5-14.5)
[2023-02-10 10:29] LABS: NEUTROPHILS % (AUTO) 89.4 % (40.0-70.0)
[2023-02-10 16:22] VITALS: BP 110/55
[2023-02-10 19:48] VITALS: BP 106/51
[2023-02-10] MEDS: ACYCLOVIR 800 MG TABLET PO SCH (20:46)
[2023-02-10] MEDS: HYDROCODONE/ACETAMINOPHEN 5-325 MG TABLET PO PRN (22:04)
[2023-02-10] MEDS: ZOLPIDEM TARTRATE 5 MG TABLET PO PRN (22:04)
[2023-02-11 04:11] VITALS: BP 123/81
[2023-02-11 07:21] VITALS: BP 108/61
[2023-02-11] MEDS: PredniSONE 20 MG TABLET PO SCH ×2 (07:55→19:54)
[2023-02-11] MEDS: PANTOPRAZOLE SODIUM 40 MG DR TABLET PO SCH (07:56)
[2023-02-11] MEDS: MONTELUKAST SODIUM 10 MG TABLET PO SCH (07:56)
[2023-02-11] MEDS: TERBINAFINE HCL 250 MG TABLET PO SCH (07:56)
[2023-02-11] MEDS: GABAPENTIN 100 MG CAPSULE PO SCH ×3 (07:56→19:53)
[2023-02-11] MEDS: ESCITALOPRAM OXALATE 10 MG TABLET PO SCH (07:57)
[2023-02-11] MEDS: ALLOPURINOL 100 MG TABLET PO SCH (07:57)
[2023-02-11] MEDS: METHOCARBAMOL 750 MG TABLET PO SCH ×3 (07:57→19:54)
[2023-02-11 11:14] LABS: BASOPHILS % (AUTO) 0.2 % (0.0-2.0); EOSINOPHILS % (AUTO) 0 % (1.0-6.0); HEMATOCRIT 34.4 % (41-53); HEMOGLOBIN 11.5 g/dL (13.5-17.5); LYMPHOCYTES # (AUTO) 1.3 K/uL (1.0-4.8); LYMPHOCYTES % (AUTO) 7.8 % (22.0-44.0); MEAN CORPUSCULAR HEMOGLOBIN 31.5 pg (26.0-34.0); MEAN CORPUSCULAR HGB CONC 33.3 G/dL (31.0-37.0); MEAN CORPUSCULAR VOLUME 95 fL (80-100); MONOCYTES # (AUTO) 1.6 K/uL (0.1-1.0); MONOCYTES % (AUTO) 9.5 % (2.0-9.0); NEUTROPHILS # (AUTO) 14.1 K/uL (1.8-7.7); NEUTROPHILS % (AUTO) 82.5 % (40.0-70.0); PLATELET COUNT (AUTO) 628 K/uL (150-450); RED BLOOD CELL COUNT(AUTO) 3.64 MIL/uL (4.50-5.90); RED CELL DISTRIBUTION WIDTH 15.3 % (11.5-14.5)
[2023-02-11] MEDS ORDERED: LOPERAMIDE HCL 2 MG CAPSULE PO PRN (14:00)
[2023-02-11] MEDS: GuaiFENesin/D-METHORPHAN/PHENYLEPH 5 ML LIQUID ORAL.SYG PO PRN ×2 (15:27→22:07)
[2023-02-11] MEDS: ACYCLOVIR 800 MG TABLET PO SCH (19:54)
[2023-02-11] MEDS: HYDROCODONE/ACETAMINOPHEN 5-325 MG TABLET PO PRN (19:57)
[2023-02-11 21:12] VITALS: BP 110/70
[2023-02-11] MEDS: ZOLPIDEM TARTRATE 5 MG TABLET PO PRN (22:07)
[2023-02-11] MEDS: MIRTAZAPINE 15 MG TABLET PO SCH (22:07)
[2023-02-12] MEDS: GuaiFENesin/D-METHORPHAN/PHENYLEPH 5 ML LIQUID ORAL.SYG PO PRN ×3 (04:07→20:20)
[2023-02-12 04:35] VITALS: BP 113/65
[2023-02-12 07:35] LABS: BASOPHILS % (AUTO) 0.2 % (0.0-2.0); EOSINOPHILS % (AUTO) 0 % (1.0-6.0); HEMATOCRIT 32.8 % (41-53); LYMPHOCYTES % (AUTO) 8.1 % (22.0-44.0); MEAN CORPUSCULAR HEMOGLOBIN 31.7 pg (26.0-34.0); MEAN CORPUSCULAR HGB CONC 33.6 G/dL (31.0-37.0); MEAN CORPUSCULAR VOLUME 94 fL (80-100); MONOCYTES % (AUTO) 7.7 % (2.0-9.0); NEUTROPHILS # (AUTO) 10.3 K/uL (1.8-7.7); PLATELET COUNT (AUTO) 541 K/uL (150-450); RED BLOOD CELL COUNT(AUTO) 3.48 MIL/uL (4.50-5.90); RED CELL DISTRIBUTION WIDTH 14.9 % (11.5-14.5)
[2023-02-12 07:37] VITALS: BP 123/77
[2023-02-12] MEDS: GABAPENTIN 100 MG CAPSULE PO SCH ×3 (08:54→20:20)
[2023-02-12] MEDS: MONTELUKAST SODIUM 10 MG TABLET PO SCH (08:54)
[2023-02-12] MEDS: TERBINAFINE HCL 250 MG TABLET PO SCH (08:54)
[2023-02-12] MEDS: PredniSONE 20 MG TABLET PO SCH ×2 (08:54→20:20)
[2023-02-12] MEDS: PANTOPRAZOLE SODIUM 40 MG DR TABLET PO SCH (08:54)
[2023-02-12] MEDS: ESCITALOPRAM OXALATE 10 MG TABLET PO SCH (08:55)
[2023-02-12] MEDS: METHOCARBAMOL 750 MG TABLET PO SCH ×3 (08:55→20:20)
[2023-02-12] MEDS: ALLOPURINOL 100 MG TABLET PO SCH (08:55)
[2023-02-12 15:53] VITALS: BP 110/60
[2023-02-12 20:03] VITALS: BP 106/55
[2023-02-12] MEDS: ACYCLOVIR 800 MG TABLET PO SCH (20:20)
[2023-02-12] MEDS: MIRTAZAPINE 15 MG TABLET PO SCH (20:20)
[2023-02-12] MEDS: HYDROCODONE/ACETAMINOPHEN 5-325 MG TABLET PO PRN (21:52)
[2023-02-12] MEDS: ZOLPIDEM TARTRATE 5 MG TABLET PO PRN (21:52)
[2023-02-13 04:16] VITALS: BP 124/73
[2023-02-13 08:00] VITALS: BP 112/76
[2023-02-13 08:19] LABS: BASOPHILS % (AUTO) 0.1 % (0.0-2.0); EOSINOPHILS % (AUTO) 0 % (1.0-6.0); HEMOGLOBIN 11.3 g/dL (13.5-17.5); LYMPHOCYTES # (AUTO) 1.2 K/uL (1.0-4.8); LYMPHOCYTES % (AUTO) 10.2 % (22.0-44.0); MEAN CORPUSCULAR HEMOGLOBIN 31.5 pg (26.0-34.0); MEAN CORPUSCULAR HGB CONC 33.2 G/dL (31.0-37.0); MEAN CORPUSCULAR VOLUME 95 fL (80-100); MONOCYTES % (AUTO) 8.1 % (2.0-9.0); NEUTROPHILS # (AUTO) 9.6 K/uL (1.8-7.7); NEUTROPHILS % (AUTO) 81.6 % (40.0-70.0); PLATELET COUNT (AUTO) 595 K/uL (150-450); RED BLOOD CELL COUNT(AUTO) 3.58 MIL/uL (4.50-5.90); RED CELL DISTRIBUTION WIDTH 15.4 % (11.5-14.5)
[2023-02-13] MEDS: ALLOPURINOL 100 MG TABLET PO SCH (08:41)
[2023-02-13] MEDS: ESCITALOPRAM OXALATE 10 MG TABLET PO SCH (08:41)
[2023-02-13] MEDS: MONTELUKAST SODIUM 10 MG TABLET PO SCH (08:41)
[2023-02-13] MEDS: GABAPENTIN 100 MG CAPSULE PO SCH ×3 (08:41→20:39)
[2023-02-13] MEDS: PANTOPRAZOLE SODIUM 40 MG DR TABLET PO SCH (08:41)
[2023-02-13] MEDS: PredniSONE 20 MG TABLET PO SCH ×2 (08:41→20:39)
[2023-02-13] MEDS: TERBINAFINE HCL 250 MG TABLET PO SCH (08:41)
[2023-02-13] MEDS: METHOCARBAMOL 750 MG TABLET PO SCH ×3 (08:42→20:39)
[2023-02-13] MEDS: HYDROCODONE/ACETAMINOPHEN 5-325 MG TABLET PO PRN ×2 (09:39→20:39)
[2023-02-13] MEDS: GuaiFENesin/D-METHORPHAN/PHENYLEPH 5 ML LIQUID ORAL.SYG PO PRN ×2 (09:40→20:40)
[2023-02-13 15:43] VITALS: BP 97/52
[2023-02-13 20:10] VITALS: BP 120/65
[2023-02-13] MEDS: MIRTAZAPINE 15 MG TABLET PO SCH (20:39)
[2023-02-13] MEDS: ACYCLOVIR 800 MG TABLET PO SCH (20:40)
[2023-02-13] MEDS ORDERED: DULoxetine HCL 30 MG CAPSULE PO SCH (21:00)
[2023-02-13] MEDS: ZOLPIDEM TARTRATE 5 MG TABLET PO PRN (21:23)
[2023-02-14 04:00] VITALS: BP 108/65
[2023-02-14 08:41] VITALS: BP 129/61
[2023-02-14] MEDS: METHOCARBAMOL 750 MG TABLET PO SCH ×2 (09:10→16:50)
[2023-02-14] MEDS: PANTOPRAZOLE SODIUM 40 MG DR TABLET PO SCH (09:10)
[2023-02-14] MEDS: TERBINAFINE HCL 250 MG TABLET PO SCH (09:10)
[2023-02-14] MEDS: MONTELUKAST SODIUM 10 MG TABLET PO SCH (09:10)
[2023-02-14] MEDS: ESCITALOPRAM OXALATE 10 MG TABLET PO SCH (09:10)
[2023-02-14] MEDS: GABAPENTIN 100 MG CAPSULE PO SCH ×2 (09:10→16:50)
[2023-02-14] MEDS: ALLOPURINOL 100 MG TABLET PO SCH (09:10)
[2023-02-14] MEDS: PredniSONE 20 MG TABLET PO SCH (09:10)
[2023-02-14] MEDS: GuaiFENesin/D-METHORPHAN/PHENYLEPH 5 ML LIQUID ORAL.SYG PO PRN ×2 (09:13→16:53)
[2023-02-14] MEDS: HYDROCODONE/ACETAMINOPHEN 5-325 MG TABLET PO PRN ×2 (09:13→16:50)
[2023-02-14] MEDS ORDERED: MIRT-89 PO (13:53)
[2023-02-14] MEDS ORDERED: PANT-31 PO (13:54)
[2023-02-14] MEDS ORDERED: ACET-2247 PO (13:55)
[2023-02-14] MEDS ORDERED: PRED-554 PO (13:55)
== END 2023-02-14 19:15 | DRG 605 ==
LOC: EMS 10:56 → 6S 02-08 06:00
PROVIDERS: ADMIT Internal Medicine; ATTEND Internal Medicine
DX: S30.1XXA Contusion of abdominal wall, initial encounter (principal); J44.9 Chronic obstructive pulmonary disease, unspecified; M32.9 Systemic lupus erythematosus, unspecified; M06.9 Rheumatoid arthritis, unspecified; F32.A Depression, unspecified; M47.819 Spondylosis without myelopathy or radiculopathy, site unspecified; D72.829 Elevated white blood cell count, unspecified; X58.XXXA Exposure to other specified factors, initial encounter; Z90.49 Acquired absence of other specified parts of digestive tract; Z86.2 Personal history of diseases of the blood and blood-forming organs and certain disorders involving the immune mechanism; Z88.0 Allergy status to penicillin; Z88.1 Allergy status to other antibiotic agents; Y93.89 Activity, other specified; Y92.89 Other specified places as the place of occurrence of the external cause; Y99.8 Other external cause status
CPT/HCPCS: 70450; 71045; 71260; 72193; 74160; 80048; 80053; 81003; 83605; 83735; 83880; 84100; 84484; 85025; 85240; 85245; 85246; 85610; 85730; 86038; 86850; 86900; 86901; 87040; 93005; 99285; J1644; J2405; J7040; J7050; Q9967; 36415-L1; 36415-TC; U0003